=== PATIENT | male | born 1975 | race Caucasian/White ===

== ENCOUNTER 2016-05-28 15:36 | Emergency (ER) | payer OTHER ==
--- NOTE | 2016-05-28 15:55 | CPEKG ---
Heart Rate: 80 RR Interval: 750 P-R Interval: 148 QRSD Interval: 88 QT Interval: 376 QTC Interval: 434 P [place]: 41 QRS [place]: 29 T Wave [place]: 33 EKG Severity - NORMAL ECG - EKG Impression: SINUS RHYTHM Electronically Signed By: Silvestre Carlton 29-May-2016 00:29:56
[2016-05-28 15:56] VITALS: BP 148/94; PULSE 85; RESP 18; TEMP 97.9; O2SAT 94
[2016-05-28] MEDS ORDERED: ASPIRIN 81 MG CHEWABLE TAB PO ONE (16:05)
[2016-05-28 16:09] LABS: % IMMATURE GRANULYOCYTES 0.2 % (0.0-1.1); ABSOLUTE IMMATURE GRANULOCYTES 0.02 10^3/uL (0.00-0.10); ADD DIFF? NO; ADD MORPH? NO; ADD SCAN? NO; ATYPICAL LYMPHOCYTE FLAG 10 (0-99); FRAGMENT RBC FLAG 0 (0-99); HEMOGLOBIN 14.9 g/dL (13.7-17.5); LEFT SHIFT FLG 0 (0-99); LIPEMIA HEMOLYSIS FLAG 90 (0-99); MEAN CELL HEMOGLOBIN 29.4 pg (27.9-34.1); MEAN CELL HEMOGLOBIN CONCENTR. 33.9 g/dL (32.4-36.7); MEAN PLATELET VOLUME 8.8 fL (8.7-11.7); PLATELET CLUMPS FLAG 10 (0-99); PLATELET COUNT 458 10^3/uL (150-400); RED BLOOD CELL COUNT 5.06 10^6/uL (4.40-6.38); RED CELL DISTRIBUTION WIDTH 12.6 % (11.5-15.2)
[2016-05-28 16:20] LABS: ANION GAP 15 mEq/L (8-16); CARBON DIOXIDE 24 mEq/l (22-31); CHLORIDE 100 mEq/L (97-110); CREATININE 1.1 mg/dL (0.7-1.3); GLOMERULAR FILTRATION RATE > 60; GLUCOSE 129 mg/dL (70-100); POTASSIUM 3.8 mEq/L (3.5-5.2); SODIUM 139 mEq/L (134-144)
[2016-05-28 16:32] LABS: TROPONIN I < 0.012 ng/mL (0-0.034)
[2016-05-28] MEDS ORDERED: IBUPROFEN 200 MG TAB PO ONE (17:05)
--- NOTE | 2016-05-28 17:05 | UCPHY ---
H & P Patient Type: Established Chief Complaint Nursing Narrative: cp this am and left arm tightness. States few weeks of sinus inf s/s Time Seen by Provider: 05/28/16 15:54 HPI/ROS: This patient awakened this morning noting some left-sided chest ache that is worse with a deep breath and mild in intensity. Pain is nonradiating though at times had some mild left arm irritation as well and is not sure if this is associated with the chest discomfort. Peak intensity is 3 or 4/10. He has a similar intensity currently. He reports that he has had URI symptoms for about 10 days associated with cough but over the past 2 days the cough resolved. He does not notice any significant pain with movement and no other exacerbating factors are noted. ROS: No fevers or chills. No other constitutional symptoms including no significant fatigue. HEENT: Currently no nasal congestion. No sinus pain. No sore throat. Pulmonary: No significant dyspnea currently that earlier in the day he felt slightly short of breath but admits that may benefit from anxiety from the symptoms. Cardiovascular: No heart palpitations or lightheadedness. No calf swelling or pain. No other complaints. GI: No nausea vomiting or diaphoresis. : No complaints integumentary: No skin rash 10 point ROS is otherwise negative. Source: Patient Exam Limitations: No limitations - Personal History Tetanus Vaccine Date: < 10 years - Medical/Surgical History PMH: Dyslipidemia Hypertension Hx Asthma: No Hx Chronic Respiratory Disease: No Hx Diabetes: No Hx Cardiac Disease: No Hx Renal Disease: No Hx Cirrhosis: No Hx Alcoholism: No Hx HIV/AIDS: No Hx Splenectomy or Spleen Trauma: No Other PMH: med hx-HTN,HYPERLIPIDEMIA. surg-wisdom teeth - Family History Significant Family History: Other (His mother had a PE. No history of premature coronary artery disease) - Social History Smoking Status: Current some day smoker Alcohol Use: Occasionally Drug Use: Marijuana (Rare marijuana use no cocaine use) - Physical Exam Exam: Vital signs are normal exception of mild hypertension and O2 sat however between 94-95% General Appearance: Alert, no distress. Eyes: Pupils equal and round no pallor or injection. ENT, Mouth: Mucous membranes moist. Respiratory: There are no retractions, lungs are clear to auscultation. There is no clear chest wall tenderness that reproduces symptoms. Cardiovascular: Regular rate and rhythm. No murmur gallop rub. No calf swelling or tenderness. Gastrointestinal: Abdomen is soft and nontender, no masses, bowel sounds normal. Neurological: Alert with no focal deficits Skin: Warm and dry, no rashes. Musculoskeletal: Neck is supple nontender. Extremities are symmetrical, full range of motion. Psychiatric: Mood and affect normal DIFFERENTIAL DIAGNOSIS: After history and physical exam differential diagnosis was considered for pleurisy, PE, bronchitis, coronary syndrome, pneumothorax, pneumonia Constitutional: Initial Vital Signs Temperature (C) 36.6 C 05/28/16 15:53 Heart Rate 85 05/28/16 15:53 Respiratory Rate 18 05/28/16 15:53 Blood Pressure 148/94 H 05/28/16 15:53 O2 Sat (%) 94 05/28/16 15:53 O2 Delivery Mode Room Air Allergies/Adverse Reactions: hydrocodone bitartrate [From Vicodin] Allergy (Severe, Verified 05/28/16 15:56) Rash Home Medications: Medication Instructions Recorded Atorvastatin Calcium [Lipitor 10 0 mg PO AD 07/10/11 mg (RX)] Lisinopril [Zestril 2.5 mg (RX)] 0 mg PO AD 07/10/11 FENOFIBRATE 07/08/14 Albuterol Hfa Anes Only [Proair 2 puffs IH Q4 PRN #1 mdi 05/28/16 Hfa Icu (*)] Medical Decision Making - Diagnostics EKG Interpretation: 12 lead EKG performed at 3:53 p.m. reveals normal sinus rhythm at 80 Overall assessment: Normal EKG. For complete read please refer to trace master Imaging: Imaging Impressions Chest X-Ray 05/28/16 16:35 Impression: Clear lungs. No acute process. Chest x-ray: My interpretation- normal ED Course/Re-evaluation: IV, monitor 324 aspirin Ibuprofen p. o. with partial improvement Workup reveals normal CBC, negative D-dimer and troponin, normal electrolytes. Discussion: After workup, no evidence of coronary syndrome, PE, pneumothorax, pneumonia. I suspect the patient has pleurisy given recent viral illness. I counseled him regarding this. - Data Points Laboratory Results: Laboratory Results 05/28/16 16:05 05/28/16 16:05 05/28/16 05/28/16 05/28/16 16:05 16:05 16:05 WBC 8.01 10^3/uL 10^3/uL (3.80-9.50) RBC 5.06 10^6/uL 10^6/uL (4.40-6.38) Hgb 14.9 g/dL g/dL (13.7-17.5) Hct 44.0 % % (40.0-51.0) MCV 87.0 fL fL (81.5-99.8) MCH 29.4 pg pg (27.9-34.1) MCHC 33.9 g/dL g/dL (32.4-36.7) RDW 12.6 % % (11.5-15.2) Plt Count 458 10^3/uL H 10^3/uL (150-400) MPV 8.8 fL fL (8.7-11.7) Neut % (Auto) 55.1 % % (39.3-74.2) Lymph % (Auto) 33.6 % % (15.0-45.0) [place] % (Auto) 8.4 % % (4.5-13.0) Eos % (Auto) 2.2 % % (0.6-7.6) Baso % (Auto) 0.5 % % (0.3-1.7) Nucleat RBC Rel Count 0.0 % % (0.0-0.2) Absolute Neuts (auto) 4.41 10^3/uL 10^3/uL (1.70-6.50) Absolute Lymphs (auto) 2.69 10^3/uL 10^3/uL (1.00-3.00) Absolute Monos (auto) 0.67 10^3/uL 10^3/uL (0.30-0.80) Absolute Eos (auto) 0.18 10^3/uL 10^3/uL (0.03-0.40) Absolute Basos (auto) 0.04 10^3/uL 10^3/uL (0.02-0.10) Absolute Nucleated RBC 0.00 10^3/uL 10^3/uL (0-0.01) Immature Gran % 0.2 % % (0.0-1.1) Immature Gran # 0.02 10^3/uL 10^3/uL (0.00-0.10) D-Dimer < 0.27 ug/mLFEU ug/mLFEU (0.00-0.50) Sodium 139 mEq/L mEq/L (134-144) Potassium 3.8 mEq/L mEq/L (3.5-5.2) Chloride 100 mEq/L mEq/L (97-110) Carbon Dioxide 24 mEq/l mEq/l (22-31) Anion Gap 15 mEq/L mEq/L (8-16) BUN 16 mg/dL mg/dL (7-23) Creatinine 1.1 mg/dL mg/dL (0.7-1.3) Estimated GFR > 60 Glucose 129 mg/dL H mg/dL (70-100) Calcium 10.0 mg/dL mg/dL (8.5-10.4) Troponin I < 0.012 ng/mL ng/mL (0-0.034) Medications Given: Discontinued Medications Aspirin (Aspirin) 324 mg PO EDNOW ONE Stop: 05/28/16 16:06 Last Admin: 05/28/16 16:05 Dose: 324 mg Ibuprofen (Motrin) 600 mg PO EDNOW ONE Stop: 05/28/16 17:06 Last Admin: 05/28/16 17:25 Dose: 600 mg Departure - Departure Disposition: Home, Routine, Self-Care Clinical Impression: Pleurisy Condition: Good Instructions: Pleurisy (ED) Additional Instructions: Diagnosis: Pleurisy Plan: Ibuprofen-600 mg per 6 hours as needed for pain. Tylenol in addition as needed If you have any symptoms last beyond the next 7 days, follow up with primary care physician for recheck. Go to the emergency department for any significant worsening despite treatment plan Referrals: Gordon Cazares MD [Primary Care Provider] - As per Instructions Prescriptions: Albuterol Hfa Anes Only [Proair Hfa Icu (*)] 2 puffs IH Q4 PRN #1 mdi PRN Reason: Wheezing - PQRS PQRS Measurement: NA
== END 2016-05-28 17:30 | disposition home or self-care (01) ==
LOC: CED 15:36
DX: R09.1 Pleurisy (principal); E78.5 Hyperlipidemia, unspecified; I10 Essential (primary) hypertension; F12.90 Cannabis use, unspecified, uncomplicated; Z72.0 Tobacco use
CPT/HCPCS: 71020-PO; 80048-PO; 84484-PO; 85025-PO; 85378-PO; 93010-PO; 99215-PO; G0463-PO

== ENCOUNTER 2016-09-28 12:08 | Emergency (ER) | payer OTHER ==
[2016-09-28] MEDS ORDERED: ONDANSETRON 4 MG/2 ML VIAL IVP ONE (12:47)
[2016-09-28] MEDS ORDERED: NS 1,000 ML IV ONE (12:47)
--- NOTE | 2016-09-28 12:49 | EDPHY ---
H & P Time Seen by Provider: 09/28/16 12:16 HPI/ROS: 41-year-old male with history of hypertension hyperlipidemia presents complaining of body aches, crampy abdominal pain, diarrhea. No fever or chills. No vomiting Patient denies travel, or unusual exposures. Denies new medications. He denies changes in his medications. He has a primary care physician in the [place] area. Review of systems As per HPI General no fever no chills no weakness, positive fatigue HEENT no eye pain no eye discharge. No eye redness, no sore throat Respiratory no cough, no shortness of breath Cardiac no chest pain, no peripheral edema GI positive crampy abdominal pain positive diarrhea no constipation, no nausea, no vomiting no flank pain, no hematuria, no dysuria Musculoskeletal positive myalgias, no joint pain Heme no easy bruising, no easy bleeding Endo no polyuria, no polydipsia Skin no rashes, no pruritus Neuro no syncope, no dizziness, no headaches Psych is no suicidal ideation, no homicidal ideation Past Medical/Surgical History: Hypertension, hyperlipidemia Social History: Occasional marijuana, occasional alcohol Smoking Status: Never smoked Physical Exam: 41-year-old male alert and oriented no acute distress nontoxic appearance afebrile HEENT atraumatic normocephalic, extraocular muscles intact, anicteric Oropharynx negative for erythema negative exudate, tolerating her own secretions Neck supple no meningismus Lungs clear to auscultation bilaterally Heart regular rate and rhythm without murmur rub or gallop Abdomen nondistended normoactive bowel sounds soft nontender Back no CVA tenderness, no step-offs, no spinal tenderness Extremities no cyanosis clubbing or edema Neuro alert and oriented, no focal deficits Constitutional: Initial Vital Signs Temperature (C) 36.7 C 09/28/16 12:10 Heart Rate 102 H 09/28/16 12:10 Respiratory Rate 16 09/28/16 12:10 Blood Pressure 135/80 H 09/28/16 12:10 O2 Sat (%) 95 09/28/16 12:10 O2 Delivery Mode Room Air Allergies/Adverse Reactions: hydrocodone bitartrate [From Vicodin] Allergy (Severe, Verified 09/28/16 12:19) Rash Home Medications: Medication Instructions Recorded Lisinopril [Zestril 2.5 mg (RX)] 07/10/11 FENOFIBRATE 05/19/15 Lipitor 09/28/16 Medical Decision Making ED Course/Re-evaluation: Patient seen and evaluated for muscle aches and pains, crampy abdominal pain, diarrhea, headaches. He states this has been intermittent for the last 11 days however over the last 3-4 days his diarrhea has been more persistent. Differential diagnosis considered Diarrhea, URI, viral syndrome, gastroenteritis, pancreatitis, diverticulitis IV normal saline 1 L given, ondansetron 4 mg IV push given, Toradol 30 mg IV push given Lab sent CBC, CMP lipase all within normal limits Physical exam significant for a normal exam including a benign abdomen Patient feeling markedly improved after fluids and medication Impression Diarrhea/viral syndrome Plan Rest Drink plenty of fluids Follow-up with your primary care physician if not improving - Data Points Laboratory Results: Laboratory Results 09/28/16 13:02 09/28/16 13:02 09/28/16 09/28/16 13:02 13:02 WBC 6.33 10^3/uL 10^3/uL (3.80-9.50) RBC 5.09 10^6/uL 10^6/uL (4.40-6.38) Hgb 14.9 g/dL g/dL (13.7-17.5) Hct 44.0 % % (40.0-51.0) MCV 86.4 fL fL (81.5-99.8) MCH 29.3 pg pg (27.9-34.1) MCHC 33.9 g/dL g/dL (32.4-36.7) RDW 12.5 % % (11.5-15.2) Plt Count 437 10^3/uL H 10^3/uL (150-400) MPV 8.9 fL fL (8.7-11.7) Neut % (Auto) 56.0 % % (39.3-74.2) Lymph % (Auto) 29.5 % % (15.0-45.0) [place] % (Auto) 12.0 % % (4.5-13.0) Eos % (Auto) 1.7 % % (0.6-7.6) Baso % (Auto) 0.6 % % (0.3-1.7) Nucleat RBC Rel Count 0.0 % % (0.0-0.2) Absolute Neuts (auto) 3.54 10^3/uL 10^3/uL (1.70-6.50) Absolute Lymphs (auto) 1.87 10^3/uL 10^3/uL (1.00-3.00) Absolute Monos (auto) 0.76 10^3/uL 10^3/uL (0.30-0.80) Absolute Eos (auto) 0.11 10^3/uL 10^3/uL (0.03-0.40) Absolute Basos (auto) 0.04 10^3/uL 10^3/uL (0.02-0.10) Absolute Nucleated RBC 0.00 10^3/uL 10^3/uL (0-0.01) Immature Gran % 0.2 % % (0.0-1.1) Immature Gran # 0.01 10^3/uL 10^3/uL (0.00-0.10) Sodium 139 mEq/L mEq/L (134-144) Potassium 4.2 mEq/L mEq/L (3.5-5.2) Chloride 100 mEq/L mEq/L (97-110) Carbon Dioxide 25 mEq/l mEq/l (22-31) Anion Gap 14 mEq/L mEq/L (8-16) BUN 16 mg/dL mg/dL (7-23) Creatinine 1.2 mg/dL mg/dL (0.7-1.3) Estimated GFR > 60 Glucose 97 mg/dL mg/dL (70-100) Calcium 9.9 mg/dL mg/dL (8.5-10.4) Total Bilirubin 0.5 mg/dL mg/dL (0.1-1.4) AST 34 IU/L IU/L (17-59) ALT 47 IU/L IU/L (21-72) Alkaline Phosphatase 45 IU/L IU/L (38-126) Total Protein 7.1 g/dL g/dL (6.3-8.2) Albumin 4.3 g/dL g/dL (3.5-5.0) Lipase 85.0 IU/L IU/L (23-300) Medications Given: Discontinued Medications Sodium Chloride (Ns) 1,000 mls @ 0 mls/hr IV ONCE ONE PRN Reason: Wide Open Stop: 09/28/16 12:48 Last Admin: 09/28/16 12:58 Dose: 1,000 mls Ketorolac Tromethamine (Toradol) 30 mg IVP EDNOW ONE Stop: 09/28/16 13:30 Last Admin: 09/28/16 13:41 Dose: 30 mg Ondansetron HCl (Zofran) 4 mg IVP EDNOW ONE Stop: 09/28/16 12:48 Last Admin: 09/28/16 12:59 Dose: 4 mg Departure - Departure Disposition: Home, Routine, Self-Care Clinical Impression: Diarrhea Condition: Good Instructions: Acute Diarrhea (ED) Referrals: Gordon Cazares MD [Primary Care Provider] - As per Instructions
[2016-09-28 13:05] LABS: % IMMATURE GRANULYOCYTES 0.2 % (0.0-1.1); ABSOLUTE IMMATURE GRANULOCYTES 0.01 10^3/uL (0.00-0.10); ADD DIFF? NO; ADD MORPH? NO; ADD SCAN? NO; ATYPICAL LYMPHOCYTE FLAG 10 (0-99); FRAGMENT RBC FLAG 0 (0-99); HEMOGLOBIN 14.9 g/dL (13.7-17.5); LEFT SHIFT FLG 0 (0-99); LIPEMIA HEMOLYSIS FLAG 90 (0-99); MEAN CELL HEMOGLOBIN 29.3 pg (27.9-34.1); MEAN CELL HEMOGLOBIN CONCENTR. 33.9 g/dL (32.4-36.7); MEAN CELL VOLUME 86.4 fL (81.5-99.8); MEAN PLATELET VOLUME 8.9 fL (8.7-11.7); PLATELET CLUMPS FLAG 0 (0-99); PLATELET COUNT 437 10^3/uL (150-400); RED BLOOD CELL COUNT 5.09 10^6/uL (4.40-6.38); RED CELL DISTRIBUTION WIDTH 12.5 % (11.5-15.2)
[2016-09-28 13:22] LABS: ALANINE AMINOTRANSFERASE 47 IU/L (21-72); ALBUMIN 4.3 g/dL (3.5-5.0); ALKALINE PHOSPHATASE 45 IU/L (38-126); ANION GAP 14 mEq/L (8-16); ASPARTATE AMINOTRANSFERASE 34 IU/L (17-59); BILIRUBIN,TOTAL 0.5 mg/dL (0.1-1.4); CALCIUM 9.9 mg/dL (8.5-10.4); CARBON DIOXIDE 25 mEq/l (22-31); CHLORIDE 100 mEq/L (97-110); CREATININE 1.2 mg/dL (0.7-1.3); GLOMERULAR FILTRATION RATE > 60; GLUCOSE 97 mg/dL (70-100); POTASSIUM 4.2 mEq/L (3.5-5.2); SODIUM 139 mEq/L (134-144); TOTAL PROTEIN 7.1 g/dL (6.3-8.2)
[2016-09-28] MEDS ORDERED: KETOROLAC 30 MG/1 ML SDV IVP ONE (13:29)
[2016-09-28 14:19] VITALS: BP 123/78; PULSE 89; RESP 16; TEMP 98.2; O2SAT 94
== END 2016-09-28 14:15 | disposition home or self-care (01) ==
LOC: CED 12:08
DX: R19.7 Diarrhea, unspecified (principal); I10 Essential (primary) hypertension
CPT/HCPCS: 80053-PO; 83690-PO; 85025-PO; 96374; J1885; J2405

== ENCOUNTER 2016-11-21 20:28 | Emergency (ER) | payer OTHER ==
[2016-11-21 20:38] VITALS: TEMP 98.2
--- NOTE | 2016-11-21 20:39 | CPEKG ---
Heart Rate: 74 RR Interval: 811 P-R Interval: 156 QRSD Interval: 82 QT Interval: 384 QTC Interval: 426 P [place]: 15 QRS [place]: 24 T Wave [place]: 33 EKG Severity - NORMAL ECG - EKG Impression: SINUS RHYTHM Electronically Signed By: Marco Lehman 21-Nov-2016 21:12:54
[2016-11-21 20:47] LABS: % IMMATURE GRANULYOCYTES 0.2 % (0.0-1.1); ABSOLUTE IMMATURE GRANULOCYTES 0.02 10^3/uL (0.00-0.10); ADD DIFF? NO; ADD MORPH? NO; ADD SCAN? NO; ATYPICAL LYMPHOCYTE FLAG 10 (0-99); FRAGMENT RBC FLAG 0 (0-99); HEMATOCRIT 44.2 % (40.0-51.0); HEMOGLOBIN 14.5 g/dL (13.7-17.5); LEFT SHIFT FLG 0 (0-99); LIPEMIA HEMOLYSIS FLAG 80 (0-99); MEAN CELL HEMOGLOBIN 29.2 pg (27.9-34.1); MEAN CELL HEMOGLOBIN CONCENTR. 32.8 g/dL (32.4-36.7); MEAN CELL VOLUME 89.1 fL (81.5-99.8); MEAN PLATELET VOLUME 8.7 fL (8.7-11.7); PLATELET CLUMPS FLAG 0 (0-99); PLATELET COUNT 479 10^3/uL (150-400); RED BLOOD CELL COUNT 4.96 10^6/uL (4.40-6.38); RED CELL DISTRIBUTION WIDTH 12.7 % (11.5-15.2)
[2016-11-21 20:59] LABS: ANION GAP 15 mEq/L (8-16); CALCIUM 10.5 mg/dL (8.5-10.4); CARBON DIOXIDE 27 mEq/l (22-31); CHLORIDE 98 mEq/L (97-110); CREATININE 1.2 mg/dL (0.7-1.3); GLOMERULAR FILTRATION RATE > 60; GLUCOSE 88 mg/dL (70-100); INR 0.98 (0.83-1.16); POTASSIUM 3.9 mEq/L (3.5-5.2); PROTIME(PATIENT) 12.7 SEC (12.0-15.0); SODIUM 140 mEq/L (134-144)
[2016-11-21 21:00] LABS: APTT 30.5 SEC (23.0-38.0)
--- NOTE | 2016-11-21 21:08 | EDPHY ---
H & P Time Seen by Provider: 11/21/16 20:32 HPI/ROS: HPI Chest pains. 41-year-old male by private vehicle. This patient reports that he was moving some drums 3-4 days ago. After this he had intermittent sharp stabbing like very sudden onset pain left upper chest which was last to couple seconds and then go away immediately. He reports that he has had 3-4 episodes of this type pain per day over the last 3-4 days. He denies any associated shortness of breath. He has had no cough. No fever. Coronary artery disease risk factors include hyperlipidemia and hypertension. He is on Lipitor and lisinopril. He has no family history of coronary artery disease or coagulopathy. He is a former smoker quit 20 years ago. Smokes marijuana occasionally. He has no pain at this time. ROS: Constitutional: No fever, no chills. No weakness. Eyes: No discharge. No changes in vision. ENT: No sore throat. No nasal congestion or rhinorrhea. Respiratory: No cough. No shortness of breath. Cardiac: As above, no palpitations. Gastrointestinal: No abdominal pain, no vomiting, no diarrhea. Genitourinary: No hematuria. No dysuria or increased frequency with urination. Musculoskeletal: No back pain. No neck pain. No myalgias or arthralgias. Skin: No rashes. Neurological: No headache. No focal weakness or altered sensation. Past medical history: As above. Social history: No alcohol. As above. Here by himself. Physical Exam: General Appearance: Alert, no distress. Moderately obese. This patient is responding to questions appropriately and in full sentences. This patient appears well-hydrated and well-nourished. Eyes: Pupils equal and round no pallor or injection. No lid edema, erythema or injection. Respiratory: There are no retractions, lungs are clear to auscultation with good air movement bilaterally. Cardiovascular: Regular rate and rhythm. No murmur. Gastrointestinal: Abdomen is soft and nontender, no masses, bowel sounds normal. No focal tenderness at McBurney's point. No Gibson sign. Neurological: Motor sensory function is grossly intact. Cranial nerves are normal. Gait is normal. Skin: Warm and dry, no rashes. Musculoskeletal: Neck is supple and nontender. Extremities are symmetrical. All joints range without pain or impingement. Psychiatric: No agitation. No depression. Database: EKG: EKG time is 8:36 p.m.; EKG shows a narrow complex normal sinus rhythm with a ventricular rate of 74. The LA, QRS, QT intervals are within normal limits. There are no ST-T wave changes indicative of ischemic or injury pattern. No evidence of right heart strain. Interpreted by me. Imaging: Chest x-ray AP portable; poor inspiratory effort, the cardiac mediastinal silhouette is unremarkable. No evidence of infiltrate or pneumothorax. No acute cardiopulmonary disease process noted. Interpreted by me. Procedures: Emergency department course: IV placed. He was placed on a air sampling and monitoring. EKG was performed and reviewed by myself. His presentation is not consistent with acute coronary syndrome pulmonary embolism. Given his risk factors standard blood work including troponin will be obtained. 9:25 p.m., patient re-evaluated. He has been chest pain-free since being in the emergency depart. Results of his diagnostic workup in the emergency department discussed with him. He feels comfortable going home. He will follow up with his primary care physician in the next 1-2 days for re- evaluation. His emergency department workup is reassuring. Return to emergency department precautions were thoroughly reviewed with him. All of his questions were answered. He was discharged home in good condition. Differential Diagnosis: The differential diagnosis on this patient includes but is not limited to pleurisy, musculoskeletal chest pain. Acute coronary syndrome, pulmonary embolism, aortic dissection, pneumothorax, pericarditis, myocarditis unlikely. This represents a partial list of diagnoses considered. These considerations are based on history, physical exam, past history, reassessment and diagnostic testing. Smoking Status: Never smoked Constitutional: Initial Vital Signs Temperature (C) 36.8 C 11/21/16 20:35 Heart Rate 82 11/21/16 20:35 Respiratory Rate 18 11/21/16 20:35 Blood Pressure 165/84 H 11/21/16 20:35 O2 Sat (%) 96 11/21/16 20:35 O2 Delivery Mode Room Air Allergies/Adverse Reactions: hydrocodone bitartrate [From Vicodin] Allergy (Severe, Verified 09/28/16 12:19) Rash Home Medications: Medication Instructions Recorded Lisinopril [Zestril 2.5 mg (RX)] 07/10/11 FENOFIBRATE 07/08/14 Lipitor 09/28/16 Medical Decision Making - Data Points Laboratory Results: Laboratory Results 11/21/16 20:38 11/21/16 20:38 11/21/16 11/21/16 11/21/16 20:38 20:38 20:38 WBC 8.79 10^3/uL 10^3/uL (3.80-9.50) RBC 4.96 10^6/uL 10^6/uL (4.40-6.38) Hgb 14.5 g/dL g/dL (13.7-17.5) Hct 44.2 % % (40.0-51.0) MCV 89.1 fL fL (81.5-99.8) MCH 29.2 pg pg (27.9-34.1) MCHC 32.8 g/dL g/dL (32.4-36.7) RDW 12.7 % % (11.5-15.2) Plt Count 479 10^3/uL H 10^3/uL (150-400) MPV 8.7 fL fL (8.7-11.7) Neut % (Auto) 42.9 % % (39.3-74.2) Lymph % (Auto) 44.1 % % (15.0-45.0) [place] % (Auto) 8.9 % % (4.5-13.0) Eos % (Auto) 3.1 % % (0.6-7.6) Baso % (Auto) 0.8 % % (0.3-1.7) Nucleat RBC Rel Count 0.0 % % (0.0-0.2) Absolute Neuts (auto) 3.77 10^3/uL 10^3/uL (1.70-6.50) Absolute Lymphs (auto) 3.88 10^3/uL H 10^3/uL (1.00-3.00) Absolute Monos (auto) 0.78 10^3/uL 10^3/uL (0.30-0.80) Absolute Eos (auto) 0.27 10^3/uL 10^3/uL (0.03-0.40) Absolute Basos (auto) 0.07 10^3/uL 10^3/uL (0.02-0.10) Absolute Nucleated RBC 0.00 10^3/uL 10^3/uL (0-0.01) Immature Gran % 0.2 % % (0.0-1.1) Immature Gran # 0.02 10^3/uL 10^3/uL (0.00-0.10) PT 12.7 SEC SEC (12.0-15.0) INR 0.98 (0.83-1.16) APTT 30.5 SEC SEC (23.0-38.0) D-Dimer < 0.27 ug/mLFEU ug/mLFEU (0.00-0.50) Sodium 140 mEq/L mEq/L (134-144) Potassium 3.9 mEq/L mEq/L (3.5-5.2) Chloride 98 mEq/L mEq/L (97-110) Carbon Dioxide 27 mEq/l mEq/l (22-31) Anion Gap 15 mEq/L mEq/L (8-16) BUN 19 mg/dL mg/dL (7-23) Creatinine 1.2 mg/dL mg/dL (0.7-1.3) Estimated GFR > 60 Glucose 88 mg/dL mg/dL (70-100) Calcium 10.5 mg/dL H mg/dL (8.5-10.4) Creatine Kinase 139 IU/L IU/L (0-224) CK-MB (CK-2) Fraction 1.84 ng/mL ng/mL (0.00-4.55) Troponin I < 0.012 ng/mL ng/mL (0.000-0.034) Departure - Departure Disposition: Home, Routine, Self-Care Clinical Impression: Chest discomfort Condition: Good Instructions: Chest Pain (ED) Additional Instructions: Read and follow provided instructions. Follow-up with your primary care physician in 1-2 days for re-evaluation. Your primary care physician can refer you to a nursing home assistant as needed for further evaluation. Continue taking your medication as prescribed. Return to the emergency department for worsening chest pain, persistent or changing pain, shortness of breath or other serious concerns. Referrals: Gordon Cazares MD [Primary Care Provider] - As per Instructions
[2016-11-21 21:13] LABS: CREATINE KINASE-MB FRACTION 1.84 ng/mL (0.00-4.55); TROPONIN I < 0.012 ng/mL (0.000-0.034)
[2016-11-21 21:40] VITALS: BP 132/75; PULSE 74; RESP 16; O2SAT 94
== END 2016-11-21 21:15 | disposition home or self-care (01) ==
LOC: CED 20:28
DX: R07.89 Other chest pain (principal)
CPT/HCPCS: 71010-PO; 80048-PO; 82550-PO; 82553-PO; 84484-PO; 85025-PO; 85378-PO; 85610-PO; 85730-PO

== ENCOUNTER 2017-03-23 20:31 | Emergency (ER) | payer OTHER ==
[2017-03-23 20:37] VITALS: RESP 18; O2SAT 96
--- NOTE | 2017-03-23 20:45 | CPEKG ---
Heart Rate: 66 RR Interval: 909 P-R Interval: 148 QRSD Interval: 84 QT Interval: 384 QTC Interval: 403 P [place]: 51 QRS [place]: 36 T Wave [place]: 48 EKG Severity - NORMAL ECG - EKG Impression: SINUS RHYTHM Electronically Signed By: Silvestre Carlton 23-Mar-2017 22:01:41
[2017-03-23 20:58] LABS: PLATELET COUNT 500 10^3/uL (150-400)
[2017-03-23] MEDS ORDERED: MAG HYDROX/AL HYDROX/SIMETH 30 ML UDCUP PO ONE (21:09)
[2017-03-23] MEDS ORDERED: HYOSCYAMINE SULFATE 0.125 MG TAB PO ONE (21:09)
--- NOTE | 2017-03-23 21:51 | EDPHY ---
H & P Stated Complaint: MULTIPLE ISSUE- RESP- CARDIAC- HERNIA - MUSCULAR Time Seen by Provider: 03/23/17 20:39 HPI/ROS: Please disregard this documented refer to the document completed on the same date at 9:52 p.m.. - Personal History Current Tetanus/Diphtheria Vaccine: Unsure Current Tetanus Diphtheria and Acellular Pertussis (TDAP): Unsure Tetanus Vaccine Date: < 10 years - Medical/Surgical History Hx Asthma: No Hx Chronic Respiratory Disease: No Hx Diabetes: No Hx Cardiac Disease: No Hx Renal Disease: No Hx Cirrhosis: No Hx Alcoholism: No Hx HIV/AIDS: No Hx Splenectomy or Spleen Trauma: No Other PMH: HERNIA. med hx-HTN,HYPERLIPIDEMIA. surg-wisdom teeth - Social History Smoking Status: Never smoked Constitutional: Initial Vital Signs Temperature (C) 36.8 C 03/23/17 20:35 Heart Rate 78 03/23/17 20:35 Respiratory Rate 18 03/23/17 20:35 Blood Pressure 143/79 H 03/23/17 20:35 O2 Sat (%) 96 03/23/17 20:35 O2 Delivery Mode Room Air Allergies/Adverse Reactions: hydrocodone bitartrate [From Vicodin] Allergy (Severe, Verified 09/28/16 12:19) Rash Home Medications: Medication Instructions Recorded Lisinopril [Zestril 2.5 mg (RX)] 07/10/11 FENOFIBRATE 07/08/14 Lipitor 09/28/16 HYOSCYAMINE SULFATE [LEVSIN-SL] 0.125 - 0.25 mg SL Q6 PRN #20 03/23/17 tab.subl Pantoprazole Sodium [Protonix 40mg 40 mg PO DAILY #14 tab 03/23/17 (*)] Medical Decision Making - Data Points Laboratory Results: Laboratory Results 03/23/17 20:52 03/23/17 20:52 Medications Given: Discontinued Medications Al Hydroxide/Mg Hydroxide (Maalox Susp) 30 ml PO EDNOW ONE Stop: 03/23/17 21:10 Last Admin: 03/23/17 21:31 Dose: 30 ml Hyoscyamine Sulfate (Levsin, Hyomax-Sl) 0.125 mg PO EDNOW ONE Stop: 03/23/17 21:10 Last Admin: 03/23/17 21:31 Dose: 0.125 mg Departure - Departure Disposition: Home, Routine, Self-Care Clinical Impression: Chest pain, GERD (gastroesophageal reflux disease) Condition: Good Instructions: Hyoscyamine (By mouth), Pantoprazole (By mouth), Chest Pain (ED) , Gastroesophageal Reflux Disease (ED) Additional Instructions: Diagnoses: 1. Chest pain 2. GERD Plan: Take Protonix or Prilosec 40 mg daily for the next 2 weeks. In addition, Pickup liquid Maalox and take this and Levsin if you have acute symptoms. After the 2 weeks of the proton pump inhibitor (Protonix or Prilosec) go back to your Pepcid 20-40 mg a day. Follow-up with primary care physician for recheck for any ongoing symptoms Return for any significant worsening despite the treatment plan. Referrals: Gordon Cazares MD [Primary Care Provider] - As per Instructions Prescriptions: HYOSCYAMINE SULFATE [LEVSIN-SL] 0.125 - 0.25 mg SL Q6 PRN #20 tab.subl PRN Reason: esophageal spasm Pantoprazole Sodium [Protonix 40mg (*)] 40 mg PO DAILY #14 tab
--- NOTE | 2017-03-23 21:56 | EDPHY ---
H & P Stated Complaint: MULTIPLE ISSUE- RESP- CARDIAC- HERNIA - MUSCULAR Time Seen by Provider: 03/23/17 20:39 HPI/ROS: This patient complains of chest pain of 5 days duration that is intermittent in fleeting in nature. He describes some acid reflux symptoms which she commonly has and he has been taking Pepcid and Tums for the symptoms but in addition he has occasional gripping pain the substernal region the last for seconds at a time and then resolves. This seems more common when he bends forward. He also had some nausea over the same period of time intermittently but no vomiting. Due to the ongoing nature of his symptoms over the past 5 days he came in by private vehicle for evaluation of the symptoms. He has had similar episodes intermittently over the past few years with negative ED workups in the past. He did recently have a chest scan 2 months ago the was limited due to motion artifact but benign per his physicians report. ROS: Constitutional: No fevers. No significant fatigue. HEENT: Mild coryza recently. No other HEENT complaints Pulmonary: No cough. No shortness of breath. Cardiovascular: No heart palpitations or lightheadedness. No lower extremity swelling. GI: Nausea intermittently worse at night over the past 10 days. No vomiting. He still tolerating good p.o. intake. He reports normal bowel movements with no dark tarry stools. He does have intermittent pain the site of a small umbilical hernia. He has been wearing a hernia belt for this in the symptoms worsened a bit with lifting but he has no ongoing belly pain in the area when at rest. No abdominal distension. : No complaints Integumentary: No complaints Endocrine no complaints Neuro: No complaints Psychiatric: Mild anxiety about his symptoms. Complete review of symptoms otherwise negative. Source: Patient Exam Limitations: No limitations - Personal History Current Tetanus/Diphtheria Vaccine: Unsure Current Tetanus Diphtheria and Acellular Pertussis (TDAP): Unsure Tetanus Vaccine Date: < 10 years - Medical/Surgical History PMH: Hypertension and dyslipidemia Small umbilical hernia Hx Asthma: No Hx Chronic Respiratory Disease: No Hx Diabetes: No Hx Cardiac Disease: No Hx Renal Disease: No Hx Cirrhosis: No Hx Alcoholism: No Hx HIV/AIDS: No Hx Splenectomy or Spleen Trauma: No Other PMH: HERNIA. med hx-HTN,HYPERLIPIDEMIA. 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 Eyes: Pupils equal and round no pallor or injection. ENT, Mouth: Mucous membranes moist. Respiratory: There are no retractions, lungs are clear to auscultation. No chest wall tenderness. Cardiovascular: Regular rate and rhythm. No murmur gallop or rub. No JVD. No peripheral edema. No leg tenderness or swelling. Gastrointestinal: Normoactive, soft, small reducible umbilical hernia with no significant tenderness Neurological: GCS 15 with no focal deficits. Skin: Warm and dry, no rashes. Musculoskeletal: Neck is supple nontender. Extremities are symmetrical, full range of motion. Psychiatric: Mood and affect are normal. DIFFERENTIAL DIAGNOSIS: After history and physical exam differential diagnosis was considered for GERD, esophageal spasm, coronary syndrome, pneumonia, aortic dissection, chest wall pain Constitutional: Initial Vital Signs Temperature (C) 36.8 C 03/23/17 20:35 Heart Rate 78 03/23/17 20:35 Respiratory Rate 18 03/23/17 20:35 Blood Pressure 143/79 H 03/23/17 20:35 O2 Sat (%) 96 03/23/17 20:35 O2 Delivery Mode Room Air Allergies/Adverse Reactions: hydrocodone bitartrate [From Vicodin] Allergy (Severe, Verified 09/28/16 12:19) Rash Home Medications: Medication Instructions Recorded Lisinopril [Zestril 2.5 mg (RX)] 07/10/11 FENOFIBRATE 07/08/14 Lipitor 09/28/16 HYOSCYAMINE SULFATE [LEVSIN-SL] 0.125 - 0.25 mg SL Q6 PRN #20 03/23/17 tab.subl Pantoprazole Sodium [Protonix 40mg 40 mg PO DAILY #14 tab 03/23/17 (*)] Medical Decision Making - Diagnostics EKG Interpretation: 12 lead EKG performed shortly after arrival reveals sinus rhythm at 66 Intervals: Normal throughout [place]: Normal throughout ST segments: Normal throughout Overall assessment: Normal EKG Imaging Results: Imaging Impressions Chest X-Ray 03/23/17 21:09 Impression: Normal. Two view chest x-ray: Normal by my interpretation Imaging: I viewed and interpreted images myself ED Course/Re-evaluation: IV, Maalox and Levsin with no further episodes of chest discomfort while in the emergency department Studies: CBC, troponin, basic metabolic panel normal Chest x-ray and EKG also normal Discussion: Patient presents with chest pain that is fleeting and atypical in nature and may be related to esophageal spasm associated with GERD. I counseled him regarding this. After workup, no evidence of acute coronary syndrome, pneumothorax, pneumonia or other concerning findings. Will place the patient on a 2 week course of Protonix, Maalox and Levsin to control symptoms. Also discussed diet and other factors that may contribute to GERD. Answered all the patient's questions prior to his discharge home at the time discharge he is symptom free. Follow up with primary care physician and skin customary precautions return the emergency department for any significant worsening despite the treatment plan. - Data Points Laboratory Results: Laboratory Results 03/23/17 20:52 03/23/17 20:52 03/23/17 03/23/17 20:52 20:52 WBC 9.34 10^3/uL 10^3/uL (3.80-9.50) RBC 4.93 10^6/uL 10^6/uL (4.40-6.38) Hgb 14.6 g/dL g/dL (13.7-17.5) Hct 42.7 % % (40.0-51.0) MCV 86.6 fL fL (81.5-99.8) MCH 29.6 pg pg (27.9-34.1) MCHC 34.2 g/dL g/dL (32.4-36.7) RDW 12.6 % % (11.5-15.2) Plt Count 500 10^3/uL H 10^3/uL (150-400) MPV 8.6 fL L fL (8.7-11.7) Neut % (Auto) 46.3 % % (39.3-74.2) Lymph % (Auto) 41.5 % % (15.0-45.0) Rush % (Auto) 8.8 % % (4.5-13.0) Eos % (Auto) 2.6 % % (0.6-7.6) Baso % (Auto) 0.6 % % (0.3-1.7) Nucleat RBC Rel Count 0.0 % % (0.0-0.2) Absolute Neuts (auto) 4.32 10^3/uL 10^3/uL (1.70-6.50) Absolute Lymphs (auto) 3.88 10^3/uL H 10^3/uL (1.00-3.00) Absolute Monos (auto) 0.82 10^3/uL H 10^3/uL (0.30-0.80) Absolute Eos (auto) 0.24 10^3/uL 10^3/uL (0.03-0.40) Absolute Basos (auto) 0.06 10^3/uL 10^3/uL (0.02-0.10) Absolute Nucleated RBC 0.00 10^3/uL 10^3/uL (0-0.01) Immature Gran % 0.2 % % (0.0-1.1) Immature Gran # 0.02 10^3/uL 10^3/uL (0.00-0.10) Sodium 142 mEq/L mEq/L (135-145) Potassium 4.1 mEq/L mEq/L (3.5-5.2) Chloride 101 mEq/L mEq/L (97-110) Carbon Dioxide 26 mEq/l mEq/l (22-31) Anion Gap 15 mEq/L mEq/L (8-16) BUN 17 mg/dL mg/dL (7-23) Creatinine 1.2 mg/dL mg/dL (0.7-1.3) Estimated GFR > 60 Glucose 92 mg/dL mg/dL (70-100) Calcium 10.1 mg/dL mg/dL (8.5-10.4) Troponin I < 0.012 ng/mL ng/mL (0.000-0.034) Medications Given: Discontinued Medications Al Hydroxide/Mg Hydroxide (Maalox Susp) 30 ml PO EDNOW ONE Stop: 03/23/17 21:10 Last Admin: 03/23/17 21:31 Dose: 30 ml Hyoscyamine Sulfate (Levsin, Hyomax-Sl) 0.125 mg PO EDNOW ONE Stop: 03/23/17 21:10 Last Admin: 03/23/17 21:31 Dose: 0.125 mg Departure - Departure Disposition: Home, Routine, Self-Care Clinical Impression: Chest pain Qualifiers: Chest pain type: unspecified Qualified Code(s): R07.9 - Chest pain, unspecified GERD (gastroesophageal reflux disease) Qualifiers: Esophagitis presence: esophagitis presence not specified Qualified Code(s): K21.9 - Gastro-esophageal reflux disease without esophagitis Condition: Good Instructions: Hyoscyamine (By mouth), Pantoprazole (By mouth), Chest Pain (ED) , Gastroesophageal Reflux Disease (ED) Additional Instructions: Diagnoses: 1. Chest pain 2. GERD Plan: Take Protonix or Prilosec 40 mg daily for the next 2 weeks. In addition, Pickup liquid Maalox and take this and Levsin if you have acute symptoms. After the 2 weeks of the proton pump inhibitor (Protonix or Prilosec) go back to your Pepcid 20-40 mg a day. Follow-up with primary care physician for recheck for any ongoing symptoms Return for any significant worsening despite the treatment plan. Referrals: Gordon Cazares MD [Primary Care Provider] - As per Instructions Prescriptions: HYOSCYAMINE SULFATE [LEVSIN-SL] 0.125 - 0.25 mg SL Q6 PRN #20 tab.subl PRN Reason: esophageal spasm Pantoprazole Sodium [Protonix 40mg (*)] 40 mg PO DAILY #14 tab
[2017-03-23 22:40] VITALS: BP 140/68; PULSE 72; TEMP 98.6
== END 2017-03-23 21:57 | disposition home or self-care (01) ==
LOC: CED 20:31
DX: K21.9 Gastro-esophageal reflux disease without esophagitis (principal); I10 Essential (primary) hypertension
CPT/HCPCS: 71046-PO; 80048-PO; 84484-PO; 85025-PO

== ENCOUNTER 2018-02-11 09:09 | Emergency (ER) | payer OTHER ==
[2018-02-11] MEDS ORDERED: IBUPROFEN 600 MG TAB PO ONE ×2 (09:31→09:33)
[2018-02-11] MEDS ORDERED: IBUPROFEN 200 MG TAB PO ONE (09:33)
--- NOTE | 2018-02-11 09:34 | EDPHY ---
H & P Time Seen by Provider: 02/11/18 09:13 HPI/ROS: CHIEF COMPLAINT: Sore throat HISTORY OF PRESENT ILLNESS: Patient presents with complaints of sore throat and feeling congested. He states the symptoms began about 2 and half weeks ago. He did see his primary care physician 10 days ago and was given a short course of prednisone which did help. He states the symptoms have come back and her somewhat intermittent. It seems worse at night. He describes it as feeling like he is"swallowing a golf ball". He states he feels like he is swollen from his neck to his ears. He does have some sinus congestion but no significant cough. No chest pain. No shortness of breath. Also is stating that over the last few weeks he has had some intermittent diarrhea but that is now better. Contents of 10 point review of systems otherwise negative except for what is mentioned in HPI. General Appearance: Alert, no distress. HEENT: Pupils equal and round no icterus, TMs clear bilaterally, oropharynx with mild erythema no edema no exudate no tonsillar hypertrophy. No cervical lymphadenopathy. Trachea midline. Respiratory: No respiratory distress, lungs clear to auscultation bilaterally Cardiac: Regular rate and rhythm no murmurs rubs or gallops. Abdomen soft nontender nondistended. Neurological: Awake, alert, no focal deficits. Skin: Warm and dry, no rashes. Musculoskeletal: Neck is supple nontender. Extremities are symmetrical, full range of motion, no edema. Psychiatric: Patient is oriented X 3, there is no agitation. Medical/surgical history: Hypertension, hyperlipidemia. Surgeries include wisdom teeth, umbilical hernia last January 2017. Social history: Denies tobacco, occasional cannabis, rare EtOH. Smoking Status: Former smoker Constitutional: Initial Vital Signs Temperature (C) 36.9 C 02/11/18 09:14 Heart Rate 93 02/11/18 09:14 Respiratory Rate 16 02/11/18 09:14 Blood Pressure 143/86 H 02/11/18 09:14 O2 Sat (%) 94 02/11/18 09:14 O2 Delivery Mode Room Air Allergies/Adverse Reactions: hydrocodone bitartrate [From Vicodin] Allergy (Verified 02/11/18 09:16) Pt reports Rash Home Medications: Medication Instructions Recorded Lisinopril [Zestril 2.5 mg (RX)] 07/10/11 FENOFIBRATE 07/08/14 Lipitor 09/28/16 Pepcid 02/11/18 Medical Decision Making Differential Diagnosis: Differential diagnosis includes but is not limited to viral upper respiratory infection, sinusitis, strep pharyngitis, influenza, retropharyngeal abscess. After evaluation no signs of serious bacterial infection, airway compromise, hypoxia, fever, hemodynamic instability. Suspect patient has viral upper respiratory infection however may be complicated by allergic symptoms as well. Discussed the use of Flonase and other [id number] medications for symptomatic relief. Strongly recommended follow-up with primary care physician within the week. Understands return precautions. Stable for discharge. - Data Points Medications Given: Discontinued Medications Ibuprofen (Motrin) 600 mg PO EDNOW ONE Stop: 02/11/18 09:34 Last Admin: 02/11/18 09:34 Dose: 600 mg Ibuprofen (Motrin) 200 mg PO EDNOW ONE Stop: 02/11/18 09:34 Last Admin: 02/11/18 09:35 Dose: 200 mg Point of Care Test Results: Influenza PCR Flu Nasal Swab Collection Date 02/11/18 Flu Nasal Swab Collection Time 09:37 Influenza A Result Not Detected Influenza B Result Not Detected Strep Strep Throat Swab Collection 02/11/18 Date Strep Throat Swab Swab 10:17 Collection Time Strep Result Not Detected Departure - Departure Disposition: Home, Routine, Self-Care Clinical Impression: Acute upper respiratory infection Condition: Fair Instructions: Upper Respiratory Infection (ED) Additional Instructions: Try Flonase twice a day in each nostril as discussed for at least 1 week then once a day each nostril afterwards. You can take ibuprofen for pain as needed. Salt water gargles and nasal spray are also effective. Return to the emergency department for difficulty breathing, high fevers, other worsening symptoms that are concerning. Follow up with her primary care physician in 5- 10 days without fail. Referrals: Johnson Harman MD [Primary Care Provider] - As per Instructions
[2018-02-11 10:41] VITALS: BP 136/78
== END 2018-02-11 10:40 | disposition home or self-care (01) ==
LOC: CED 09:09
DX: J06.9 Acute upper respiratory infection, unspecified (principal); I10 Essential (primary) hypertension; E78.5 Hyperlipidemia, unspecified; Z87.891 Personal history of nicotine dependence

== ENCOUNTER 2018-05-01 15:34 | Emergency (ER) | payer OTHER ==
--- NOTE | 2018-05-01 15:55 | EDPHY ---
H & P Stated Complaint: chest pain one month Time Seen by Provider: 05/01/18 15:39 HPI/ROS: 42 yo M presents c/o had EGD done yesterday and when they called to check on him they asked if he had chills, which he responded yes , and he was told by GI to go to the ED. He states he actually feels the same as he has for the last 4 months. He has an appointment with his primary care next week, and plans to follow up with an Senior [employer] in several months. Review of systems General no fever positive chills no weakness HEENT no eye pain no eye discharge. No eye redness, sometimes sore throat Respiratory no cough, no shortness of breath Cardiac sometimes chest pain, no peripheral edema GI no abdominal pain, no diarrhea, no constipation, no nausea, no vomiting no flank pain, no hematuria, no dysuria Musculoskeletal no myalgias, no joint pain Heme no easy bruising, no easy bleeding Endo no polyuria, no polydipsia Skin no rashes, no pruritus Neuro no syncope, no dizziness, no headaches Psych is no suicidal ideation, no homicidal ideation Source: Patient Exam Limitations: No limitations - Personal History Tetanus Vaccine Date: < 10 years - Medical/Surgical History Hx Asthma: No Hx Chronic Respiratory Disease: No Hx Diabetes: No Hx Cardiac Disease: Yes Hx Renal Disease: No Hx Cirrhosis: No Hx Alcoholism: No Hx HIV/AIDS: No Hx Splenectomy or Spleen Trauma: No Other PMH: med hx-HTN,HYPERLIPIDEMIA. surg-wisdom teeth, umbilical hernia repair, GERD, - Family History Significant Family History: No pertinent family hx - Social History Smoking Status: Former smoker Alcohol Use: Occasionally Drug Use: None - Physical Exam Exam: 42-year-old male HEENT atraumatic normocephalic, extraocular muscles intact, anicteric Oropharynx negative for erythema negative exudate, tolerating her own secretions Neck supple no meningismus Lungs clear to auscultation bilaterally Heart regular rate and rhythm without murmur rub or gallop Abdomen nondistended normoactive bowel sounds soft nontender Back no CVA tenderness, no step-offs, no spinal tenderness Extremities no cyanosis clubbing or edema Neuro alert and oriented, no focal deficits Constitutional: Initial Vital Signs Temperature (C) 37.1 C 05/01/18 15:42 Heart Rate 88 05/01/18 15:42 Respiratory Rate 18 03/12/19 15:42 Blood Pressure 145/97 H 05/01/18 15:42 O2 Sat (%) 96 05/01/18 15:42 O2 Delivery Mode Room Air Allergies/Adverse Reactions: hydrocodone bitartrate [From Vicodin] Allergy (Verified 05/01/18 15:47) Pt reports Rash Home Medications: Medication Instructions Recorded Lisinopril [Zestril 2.5 mg (RX)] 07/10/11 FENOFIBRATE 07/08/14 Lipitor 09/28/16 Pepcid 02/11/18 Medical Decision Making - Diagnostics Imaging Results: Imaging Impressions Chest X-Ray 05/01/18 16:04 Impression: No pneumonia. ED Course/Re-evaluation: pt seen and evaluated for chills following an EGD yesterday, also with 4 months of chest pain physical exam normal iv established and labs drawn ekg nsr, no ischemic changes CBC wnl BMP glucose elevated, no acidosis CXR nml Imp chills, no evidence of infection, no fever chest pain x 4 months normal ekg and normal cxr Plan dc home keep appt with pcp next week Differential Diagnosis: Differential diagnosis considered but not limited to Myocardial infarction, pleural effusion, pneumonia, pleurisy, pharyngitis, viral syndrome - Data Points Laboratory Results: 05/01/18 16:08 POC Sodium 141 mEq/L mEq/L (135-145) POC Potassium 3.8 mEq/L mEq/L (3.3-5.0) POC Chloride 102.0 mEq/L mEq/L (97-110) POC Total CO2 28 mEq/L mEq/L (22-31) POC BUN 12 mg/dL mg/dL (7-23) POC Creatinine 1.1 mg/dL mg/dL (0.7-1.3) POC Glucose 157 mg/dL H mg/dL (70-100) POC Calcium 10.0 mg/dL mg/dL (8.5-10.4) Point of Care Test Results: CBC CBC Collection Date 05/01/18 CBC Collection Time 16:00 WBC 6.11 RBC 5.02 HGB 14.6 HCT 44.8 PLT 453 Neut # 2.99 Neut 48.9 LYMPH # 2.32 LYMPH 38 MCV 89.2 Chemistry 05/01/18 16:08 POC Sodium 141 mEq/L mEq/L (135-145) POC Potassium 3.8 mEq/L mEq/L (3.3-5.0) POC Chloride 102.0 mEq/L mEq/L (97-110) POC Total CO2 28 mEq/L mEq/L (22-31) POC BUN 12 mg/dL mg/dL (7-23) POC Creatinine 1.1 mg/dL mg/dL (0.7-1.3) POC Glucose 157 mg/dL H mg/dL (70-100) POC Calcium 10.0 mg/dL mg/dL (8.5-10.4) Departure - Departure Disposition: Home, Routine, Self-Care Clinical Impression: Chills, History of esophagogastroduodenoscopy (EGD), History of gastroesophageal reflux (GERD) Condition: Good Instructions: Gastroesophageal Reflux Disease (ED), Fatigue (ED) Referrals: Gordon Cazares MD [Primary Care Provider] - As per Instructions
--- NOTE | 2018-05-01 16:31 | CPEKG ---
Test Reason : OPEN Blood Pressure : / mmHG Vent. Rate : 085 BPM Atrial Rate : 084 BPM P-R Int : 141 ms QRS Dur : 089 ms QT Int : 370 ms P-R-T Axes : 048 024 032 degrees QTc Int : 440 ms Sinus rhythm Confirmed by Odalis Vivar ([id number]) on 05/01/2018 4:31:00 PM Referred By: Odalis Vivar Confirmed By:Odalis Vivar
[2018-05-01 17:39] VITALS: BP 121/71
== END 2018-05-01 17:38 | disposition home or self-care (01) ==
LOC: CED 15:34
DX: R68.83 Chills (without fever) (principal); Z87.19 Personal history of other diseases of the digestive system
CPT/HCPCS: 71046-PO; 80048-ER

== ENCOUNTER → 2018-06-22 | Outpatient (CLI) | payer OTHER | LOC: CIMAGING 13:31 | PROVIDERS: ATTEND Family Medicine | DX: R22.1 Localized swelling, mass and lump, neck (principal) | CPT/HCPCS: 76536-PO ==